=== PATIENT | female | born 1955 ===

== ENCOUNTER 2018-06-10 05:37 | Day surgery (SDC) | payer OTHER ==
[2018-06-10] MEDS ORDERED: PROPOFOL 20 ML (07:25)
[2018-06-10] MEDS ORDERED: LIDOCAINE 2% (SDV) 5 ML INJ (07:26)
[2018-06-10] MEDS ORDERED: ROCURONIUM 50 MG INJ (07:26)
[2018-06-10] MEDS: CEFAZOLIN 2 GM/50 ML (PMX) 50 ML IVPB (07:30)
[2018-06-10] MEDS ORDERED: ONDANSETRON 4 MG INJ ×2 (07:33→08:15)
[2018-06-10] MEDS ORDERED: DEXAMETHASONE 4 MG/ML 5 ML INJ (07:33)
[2018-06-10] MEDS: BUPIVACAINE 0.25% (MPF) 30 ML INJ (07:37)
[2018-06-10] MEDS ORDERED: SUGAMMADEX SODIUM 200 MG/2 ML VIAL IV (07:54)
[2018-06-10] MEDS ORDERED: HYDROmorphONE 1 MG/5 ML IV SYRINGE IV ×3 (08:18→08:30)
[2018-06-10] MEDS ORDERED: MEPERIDINE 25 MG INJ (08:18)
[2018-06-10] MEDS ORDERED: LABETALOL HCL 20MG INJ IV (08:30)
[2018-06-10] MEDS ORDERED: METOCLOPRAMIDE 10 MG INJ IV (08:30)
[2018-06-10] MEDS ORDERED: ALBUTEROL 0.083% (NEB) 2.5 MG/3 ML AMP HHN (08:30)
[2018-06-10] MEDS ORDERED: OXYCODONE/ACETAMINOPHEN (5/325) TAB PO ×2 (08:30)
[2018-06-10] MEDS ORDERED: EPHEDrine SULFATE 50 MG/5 ML SYG IV (08:30)
[2018-06-10] MEDS ORDERED: FENTAnyl 50 MCG/ML VIAL IV ×3 (08:30)
[2018-06-10] MEDS ORDERED: DIPHENHYDRAMINE 50 MG INJ IV (08:30)
[2018-06-10] MEDS ORDERED: hydrALAzine 20 MG INJ IV (08:30)
[2018-06-10] MEDS: HYDROmorphONE 1 MG/5 ML IV SYRINGE IV (08:41)
[2018-06-10] MEDS: MEPERIDINE 25 MG INJ IV (08:41)
[2018-06-10] MEDS: ONDANSETRON 4 MG INJ IV (08:41)
[2018-06-10] MEDS: SOD CHLORIDE 0.9% 1,000 ML IV (08:43)
[2018-06-10] MEDS: HYDROCODONE/APAP (5/325) TAB PO (08:51)
== END 2018-06-10 10:00 | disposition home or self-care (01) ==
LOC: SDS 05:37
DX: K80.10 Calculus of gallbladder with chronic cholecystitis without obstruction (principal); E11.9 Type 2 diabetes mellitus without complications; I10 Essential (primary) hypertension
CPT/HCPCS: 47562; 82962; 88304